=== PATIENT | male | born 1955 | race Caucasian/White ===

== ENCOUNTER 2018-09-24 07:09 | Day surgery (SDC) | payer OTHER ==
[2018-09-24] MEDS ORDERED: LR 1,000 ML IV ONE (07:38)
[2018-09-24] MEDS ORDERED: LIDOCAINE 1% 2 ML INJ ID PRN (07:38)
--- NOTE | 2018-09-24 08:41 | PDANEPAE ---
ANE History of Present Illness EUS and ERCP ANE Past Medical History - Cardiovascular History Hx Hypertension: Yes Hx Arrhythmias: No Hx Chest Pain: No Hx Coronary Artery / Peripheral Vascular Disease: No Hx CHF / Valvular Disease: No Hx Palpitations: No - Pulmonary History Hx COPD: No Hx Asthma/Reactive Airway Disease: No Hx Recent Upper Respiratory Infection: No Hx Oxygen in Use at Home: No Hx Sleep Apnea: No Sleep Apnea Screening Result - Last Documented: Negative - Neurologic History Hx Cerebrovascular Accident: No Hx Seizures: Yes Hx Dementia: No Neurologic History Comment: SEIZURE RELATED TO PREV RX - Endocrine History Hx Diabetes: No - Renal History Hx Renal Disorders: Yes Renal History Comment: INTERMITTENT DARK URINE - Liver History Hx Hepatic Disorders: Yes Hepatic History Comment: MUSTAPHA REMOVED 15 YEARS AGO. NOW HAS 4 STONES IN DUCT. ELEVATED LIVER ENZYMES. HEP C TREATMENT COMPLETED 10/2017 - Neurological & Psychiatric Hx Hx Neurological and Psychiatric Disorders: No - Cancer History Hx Cancer: No - Congenital Disorder History Hx Congenital Disorders: No - GI History Hx Gastrointestinal Disorders: Yes Gastrointestinal History Comment: GI ISSUES PAST 1-1.5 YRS - Chronic Pain History Chronic Pain: Yes (RUQ AND GI) - Surgical History Prior Surgeries: LUMBAR FUSIONS. CERVICAL FUSION. MUSTAPHA. LT FOREARM ORIF. JAYLYN LEG ANKLE RECONSTRUCTION. VENTRAL HERNIA REPAIR ANE Review of Systems Review of Systems: - Exercise capacity METS (RN): 3 METS ANE Patient History - Allergies Allergies/Adverse Reactions: No Known Allergies Allergy (Unverified 09/23/18 16:58) - Home Medications Home Medications: Carvedilol BID 09/23/18 [Last Taken 09/24/18] Herbals/Supplements -Info Only DAILY 09/23/18 [Last Taken Unknown] Lotrel 10-40 mg Capsule DAILY 09/23/18 [Last Taken 09/23/18] Naproxen BID 09/23/18 [Last Taken 09/03/18] Omeprazole DAILY 09/23/18 [Last Taken 09/24/18] - NPO status NPO Status: no food or drink >8 hours NPO Since - Liquids (Date): 09/24/18 NPO Since - Liquids (Time): 05:30 NPO Since - Solids (Date): 09/23/18 NPO Since - Solids (Time): 21:00 - Anes Hx Anes Hx: no prior problems - Smoking Hx Smoking Status: Former smoker - Alcohol Use Alcohol Use: None - Family Anes Hx Family Anes Hx: none ANE Labs/Vital Signs - Labs Result Diagrams: 09/24/18 07:50 - Vital Signs Blood Pressure: 118/87 Heart Rate: 85 Respiratory Rate: 18 O2 Sat (%): 94 Height: 182.88 cm Weight: 83.915 kg ANE Physical Exam - Airway Neck exam: decreased ROM Mallampati Score: Class 1 Mouth exam: normal dental/mouth exam - Pulmonary Pulmonary: no respiratory distress, no rales or rhonchi - Cardiovascular Cardiovascular: regular rate and rhythym, no murmur, rub, or gallop - ASA Status ASA Status: II ANE Anesthesia Plan Anesthesia Plan: general endotracheal anesthesia
[2018-09-24] MEDS ORDERED: IOTHALAMATE MEG (CONRAY) 50 ML VIAL IV ONE (08:42)
[2018-09-24] MEDS ORDERED: GLUCAGON HCL 1 MG VIAL ONE (08:42)
[2018-09-24] MEDS ORDERED: INDOMETHACIN 50 MG SUPP PR ONE ×2 (08:42→09:02)
[2018-09-24] MEDS ORDERED: fentaNYL 100 MCG/2 ML INJ ONE ×3 (08:44→10:35)
[2018-09-24] MEDS ORDERED: PROPOFOL 200 MG/20 ML VIAL ONE (08:44)
[2018-09-24] MEDS ORDERED: PROPOFOL/EMULSION 500 MG/50 ML BOTTLE IV ONE (08:45)
[2018-09-24] MEDS ORDERED: MIDAZOLAM 2 MG/2 ML VIAL ONE (08:48)
--- NOTE | 2018-09-24 08:48 | PDGENHP ---
History & Physical Chief Complaint: abnormal imaging/RUQ abdominal pain History of Present Illness: 63 year old male presents for evaluation of CBD obstruction. Pertinent Past, Social, Family History: PMHx: hepatitis, cirrhosis, HTN. PSurghx: lumbar fusions, ccy Relevant Physical Exam: HEENT: anicteric. CV: RRR +s1s2. Lungs: CTAB No w/r/. Abd: soft, nt, + bs Cardiorespiratory Assessment: ASA 3
[2018-09-24] MEDS ORDERED: INDOMETHACIN 50 MG SUPP PR PRN (08:49)
[2018-09-24] MEDS ORDERED: ROCURONIUM 50 MG/5 ML VIAL ONE (08:58)
[2018-09-24] MEDS ORDERED: LIDOCAINE 2% 5 ML SDV ONE (08:59)
[2018-09-24] MEDS ORDERED: GLYCOPYRROLATE 0.2 MG/1 ML VIAL ONE ×3 (08:59→10:23)
[2018-09-24] MEDS ORDERED: NS 500 ML IV SCH (09:00)
[2018-09-24] MEDS ORDERED: PHENYLEPHRINE HCL 100 MCG/ML SYR ONE (09:34)
[2018-09-24] MEDS ORDERED: DEXAMETHASONE 4 MG/ML VIAL ONE (09:47)
[2018-09-24] MEDS ORDERED: ONDANSETRON 4 MG/2 ML VIAL ONE (09:47)
[2018-09-24] MEDS ORDERED: levOFLOXACIN 500 MG/DEXTROSE/100 ML BAG IV ONE (09:54)
[2018-09-24] MEDS ORDERED: NEOSTIGMINE METHYLSULFATE 5 MG/5 ML SYR ONE (10:23)
[2018-09-24] MEDS ORDERED: fentaNYL 100 MCG/2 ML INJ IVP PRN (10:41)
[2018-09-24] MEDS ORDERED: ALBUTEROL 3 ML DEYVIAL IH PRN (10:41)
[2018-09-24] MEDS ORDERED: NALOXONE HCL 0.4 MG/ML INJ IVP PRN (10:41)
[2018-09-24] MEDS ORDERED: ONDANSETRON 4 MG/2 ML VIAL IVP PRN (10:41)
--- NOTE | 2018-09-24 10:45 | GIREPORT ---
[facility] Surgical Services - Endoscopy Department Patient Name: Jameson Wren Procedure Date: 09/24/2018 8:23 AM Patient Type: Outpatient Attending MD/ ER Physician: Chucho Oropeza MD Procedure: Upper EUS Indications: Common bile duct dilation (acquired) seen on CT scan, Elevated liver enzymes, Abdominal pain in the right upper quadrant, Weight loss Patient Profile: 63 year old male presents for evaluation of RUQ adominal pain, early satiety, anorexia, abnormal imaging with CBD dilation, increased LFTs a nd weight loss. Providers: Chucho Oropeza MD Medicines: General Anesthesia Complications: No immediate complications. Estimated blood loss: Minimal. Description of Procedure: After obtaining informed consent, the endoscope was passed under direct vision. Throughout the procedure, the patient's blood pressure, pulse, and oxygen saturations were monitored continuously. The Endosonoscope was introduced through the mouth, and advanced to the second part of duoden um. The Endoscope was introduced through the mouth, and advanced to the sec ond part of duodenum. The upper EUS was accomplished without difficulty. Th e esophagus, stomach, andduodenum were visualized endosonographically. Th e patient tolerated the procedure well. Findings: Endoscopic Finding : The examined esophagus was normal. Patchy mildly erythematous mucosa was found in the entire examined stom ach. Biopsies were taken with a cold forceps for histology. A hiatal hernia was present. The examined duodenum was normal. Biopsies for histology were taken wit h a cold forceps for evaluation of celiac disease. Endosonographic Finding : Four stones were visualized endosonographically in the common bile duct . The stones measured up from 5-12 mm in greatest dimension. The stones were round. They were hyperechoic and characterized by shadowing. Pancreatic parenchymal abnormalities were noted in the entire pancreas. These consisted of hyperechoic foci. No lymphadenopathy seen. There was no sign of significant endosonographic abnormality in the visualized portion of the liver. No masses were identified. Estimated Blood Loss: Estimated blood loss was minimal. Post Op Diagnosis: - Normal esophagus. - Erythematous mucosa in the stomach. Biopsied. - Hiatal hernia. - Normal examined duodenum. Biopsied. - Four stones were visualized endosonographically in the common bile du ct. - Pancreatic parenchymal abnormalities consisting of hyperechoic foci w ere noted in the entire pancreas. - There was no evidence of significant pathology in the visualized port ion of the liver. Recommendation: - Perform an ERCP today. - Await path results. - Thank you for allowing me to participate in the care of your patient. Attending Participation: I personally performed the entire procedure. Chucho Oropeza MD Chucho Oropeza MD 09/24/2018 10:45:15 AM This report has been signed electronicallyChucho Oropeza MD Number of Addenda: 0 Note Initiated On: 09/24/2018 8:23 AM [email or web address]
--- NOTE | 2018-09-24 10:52 | GIREPORT ---
[facility] Surgical Services - Endoscopy Department Patient Name: Jameson Wren Procedure Date: 09/24/2018 9:33 AM Patient Type: Outpatient Attending MD/ ER Physician: Chucho Oropeza MD Procedure: ERCP Indications: Bile duct stone(s) Patient Profile: 63 year old male presents for biliary decompression. He had a prior EUS with multiple large CBD stones noted. Providers: Chucho Oropeza MD Medicines: General Anesthesia, Indomethacin 100 mg HI Complications: No immediate complications. Estimated blood loss: Minimal. Description of Procedure: After obtaining informed consent, the scope was passed under direct vis ion. Throughout the procedure, the patient's blood pressure, pulse, and oxyg en saturations were monitored continuously. The Duodenoscope was introduce d through the mouth, and advanced to the duodenum and used to inject cont rast into the bile duct. The ERCP was accomplished without difficulty. The patient tolerated the procedure well. Findings: The radiator repairer film was normal. The esophagus was successfully intubated und er direct vision. The scope was advanced to a normal major papilla in the descending duodenum without detailed examination of the pharynx, larynx and associated structures, and upper GI tract. The upper GI tract was gross ly normal. A wire was passed into the biliary tree. The short-nosed tracti on sphincterotome was passed over the guidewire and the bile duct was then deeply cannulated. Contrast was injected. I personally interpreted the bile duct images. Ductal flow of contrast was adequate. Image quality was adequate. Contrast extended to the entire biliary tree. The main bile d uct contained multiple stones, the largest of which was 15 mm in diameter. A 15 mm biliary sphincterotomy was made with a traction (standard) sphincter otome using pure cut current. The sphincterotomy oozed blood. The biliary dawson e was swept with an 18 mm balloon starting at the bifurcation. Many stones we re removed. One stone remained at the bifurcation. A trapezoid basket was utilized but the stone still could not be removed. One 10 Fr by 7 cm temporary stent was placed into the common bile duct. Bile flowed throu gh the stent. The stent was in good position. Estimated Blood Loss: Estimated blood loss was minimal. Post Op Diagnosis: - Choledocholithiasis was found. Partial removal was accomplished by bi liary sphincterotomy - A biliary sphincterotomy was performed. - The biliary tree was swept and multiple stones over > 1cm were remove d as well as significant sludge.. Recommendation: - Discharge patient to home (with escort). - Clear liquid diet. - Continue present medications. - Repeat ERCP in 6 weeks for retreatment with Spyglass with lithotripsy . - Thank you for allowing me to participate in the care of your patient. Attending Participation: I personally performed the entire procedure. Chucho Oropeza MD Chucho Oropeza MD 09/24/2018 10:52:42 AM This report has been signed electronicallyChucho Oropeza MD Number of Addenda: 0 Note Initiated On: 09/24/2018 9:33 AM [email or web address]
--- NOTE | 2018-09-24 12:30 | POSTANESTH ---
Post Anesthetic Evaluation Cardiovascular Status: Normal, Stable Respiratory Status: Similar to Pre-op Cond. Level of Consciousness/Mental Status: Can Participate in Eval Pain Control: Adequate, Prn Tx Ordered Nausea/Vomiting Control: Adequate, Prn Tx Ordered Complications Possibly Related to Anesthesia: None Noted
[2018-09-24 12:47] VITALS: BP 130/88
== END 2018-09-24 12:40 | disposition home or self-care (01) ==
LOC: FSGY 07:09 → EDSEX 07:09 → FSGY 12:40
PROVIDERS: ATTEND Internal Medicine Gastroenterology
DX: K80.50 Calculus of bile duct without cholangitis or cholecystitis without obstruction (principal); K74.60 Unspecified cirrhosis of liver; K29.50 Unspecified chronic gastritis without bleeding; I10 Essential (primary) hypertension; Z98.1 Arthrodesis status; Z86.19 Personal history of other infectious and parasitic diseases
CPT/HCPCS: C2625; J1100; J1610; J1956; J2250; J2370; J2405; J2704; J2710; J3010; Q9961